=== PATIENT | female | born 2000 | race Caucasian/White ===

== ENCOUNTER 2020-01-14 21:33 | Emergency (ER) | payer BC, OTHER ==
[~2020-01-14] VITALS: Ht 160 cm; Wt 72.6 kg
[2020-01-14 21:52] LABS: BILIRUBIN,URINE NEGATIVE (NEGATIVE); CLARITY,URINE CLEAR; COLOR,URINE YELLOW; GLUCOSE, URINE (UA) NEGATIVE (NEGATIVE); KETONES,URINE NEGATIVE (NEGATIVE); LEUKOCYTE ESTERASE ,URINE NEGATIVE (NEGATIVE); NITRITE,URINE NEGATIVE (NEGATIVE); PH,URINE 5.5 (5-9); PROTEIN,URINE NEGATIVE (NEGATIVE)
[2020-01-14] MEDS ORDERED: LACTATED RINGERS 1,000 ML IV ONE (22:04)
[2020-01-14 22:13] LABS: BACTERIA,URINE MODERATE /HPF; BASOPHILS # (AUTO) 0.1 10^3/uL (0.0-0.1); BASOPHILS % (AUTO) 1 % (0-10); CALCIUM OXALATE CRYSTALS,UR FEW /LPF; EOSINOPHILS # (AUTO) 0.2 10^3/uL (0.0-0.3); EOSINOPHILS % (AUTO) 2 % (0-10); HEMATOCRIT 36 % (35-52); HEMOGLOBIN 12.4 g/dL (11.5-16.0); LYMPHOCYTES # (AUTO) 3.1 10^3/uL (1.0-4.0); LYMPHOCYTES % (AUTO) 30 % (12-44); MEAN CORPUSCULAR HEMOGLOBIN 30 pg (25-34); MEAN CORPUSCULAR HGB CONC 34 g/dL (32-36); MEAN CORPUSCULAR VOLUME 88 fL (80-99); MEAN PLATELET VOLUME 10.6 fL (9.0-12.2); MONOCYTES # (AUTO) 0.7 10^3/uL (0.0-1.0); MONOCYTES % (AUTO) 7 % (0-12); NEUTROPHILS # (AUTO) 6.2 10^3/uL (1.8-7.8); NEUTROPHILS % (AUTO) 60 % (42-75); PLATELET COUNT 307 10^3/uL (130-400); RBC,URINE 50-100 /HPF; WHITE BLOOD COUNT 10.3 10^3/uL (4.3-11.0)
[2020-01-14] MEDS ORDERED: ONDANSETRON 4 MG/2 ML (SDV) Z0FRAN IVP ONE (22:15)
[2020-01-14 22:19] LABS: ALBUMIN 4.3 GM/DL (3.2-4.5); CHLORIDE 107 MMOL/L (98-107); POTASSIUM 3.3 MMOL/L (3.6-5.0); SODIUM 139 MMOL/L (135-145)
[2020-01-14 22:20] LABS: CALCIUM 8.9 MG/DL (8.5-10.1)
[2020-01-14 22:22] LABS: GLUCOSE 133 MG/DL (70-105); TOTAL PROTEIN 7.1 GM/DL (6.4-8.2)
[2020-01-14 22:23] LABS: BILIRUBIN,TOTAL 0.3 MG/DL (0.1-1.0); CARBON DIOXIDE 22 MMOL/L (21-32)
[2020-01-14 22:25] LABS: ALKALINE PHOSPHATASE 54 U/L (40-136); CREATININE SERUM 0.84 MG/DL (0.60-1.30); GFR ESTIMATED > 60
[2020-01-14 22:26] LABS: BUN/CREATININE RATIO 15
[2020-01-14 22:28] LABS: ALANINE AMINOTRANSFERASE 12 U/L (0-55)
--- NOTE | 2020-01-14 22:48 | ED Abdominal Pain ---
General Chief Complaint: Abdominal/GI Problems Stated Complaint: ABD PAIN;VOMITING Nursing Triage Note: Pt ambulates to room #5 with c/o abd discomfort, nausea, et vomiting. Pt reports lower R quadrant abd discomfort that began approx 2hrs [employer]. Reports discomfort to be associated with nausea et vomiting (x3 episodes of emesis). A&OX4. Sepsis Screen: No Definite Risk Source of Information: Patient Exam Limitations: No Limitations History of Present Illness Date Seen by Provider: Jan 14, 2020 Time Seen by Provider: 21:35 Initial Comments This 19-year-old young lady presents to the emergency room with complaints of right lower abdominal pain that started less than 2 hours prior to presentation. She also had associated nausea and vomiting. She reports no constipation or diarrhea. She had 2 normal bowel movements today that did not affect the pain. She reports the car ride was not particularly painful but did induce nausea and more vomiting. She denies and has no major health problems. She denies any urinary symptoms or vaginal symptoms. Allergies and Home Medications Allergies Coded Allergies: No Known Drug Allergies (Unverified , 01/14/20) Home Medications Ondansetron 4 Mg Tab.rapdis, 4 MG SL Q4H PRN for NAUSEA/VOMITING Prescribed by: SAROJ KENNEDY on 01/14/20 8300 Patient Home Medication List Home Medication List Reviewed: Yes Review of Systems Review of Systems Constitutional: no symptoms reported EENTM: No Symptoms Reported Respiratory: No Symptoms Reported Cardiovascular: No Symptoms Reported Gastrointestinal: See HPI Genitourinary: No Symptoms Reported Musculoskeletal: no symptoms reported Skin: no symptoms reported Psychiatric/Neurological: No Symptoms Reported Endocrine: No Symptoms Reported Hematologic/Lymphatic: No Symptoms Reported Past Vbeimzw-Zyxuce-Sluhhe Hx Past Med/Social Hx: Reviewed Nursing Past Med/Soc Hx Patient Social History Alcohol Use: Rarely Uses Number of Drinks Today: 0 Recreational Drug Use: No Smoking Status: Never a Smoker 2nd Hand Smoke Exposure: No Recent Foreign Travel: No Contact w/Someone Who Travel: No Recent Infectious Disease Expo: No Recent Hopitalizations: No (Denies medical hx ) Seasonal Allergies Seasonal Allergies: No Past Medical History Surgeries: No Respiratory: No Cardiac: No Neurological: No : No Genitourinary: No Gastrointestinal: No Musculoskeletal: No Endocrine: No HEENT: No Cancer: No Psychosocial: No Integumentary: No Physical Exam Vital Signs Vital Signs - First Documented 01/14/20 21:40 Temp 36.9 Pulse 78 Resp 18 B/P (MAP) 135/107 (116) Pulse Ox 99 O2 Delivery Room Air Capillary Refill : Less Than 3 Seconds Height/Weight/BMI Height: '" Weight: lbs. oz. kg; 28.00 BMI Method: General Appearance: WD/WN, no apparent distress HEENT: PERRL/EOMI, normal ENT inspection, pharynx normal Neck: normal inspection Respiratory: lungs clear, normal breath sounds, no respiratory distress Cardiovascular: regular rate, rhythm, no edema, no murmur Gastrointestinal: normal bowel sounds, soft; No distended, No guarding, No rebound; tenderness (right lower quadrant), other (subtly positive Rovsing's, heel tap, iliopsoas, and obturator signs) Extremities: normal inspection, no pedal edema Neurologic/Psychiatric: wild life manager II-XII nml as tested, no motor/sensory deficits, alert, normal mood/affect, oriented x 3 Skin: normal color, warm/dry Progress/Results/Core Measures Results/Orders Lab Results Laboratory Tests Test 01/14/20 21:45 Range/Units White Blood Count 10.3 4.3-11.0 10^3/uL Red Blood Count 4.14 3.80-5.11 10^6/uL Hemoglobin 12.4 11.5-16.0 g/dL Hematocrit 36 35-52 % Mean Corpuscular Volume 88 80-99 fL Mean Corpuscular Hemoglobin 30 25-34 pg Mean Corpuscular Hemoglobin Concent 34 32-36 g/dL Red Cell Distribution Width 12.1 10.0-14.5 % Platelet Count 307 130-400 10^3/uL Mean Platelet Volume 10.6 9.0-12.2 fL Immature Granulocyte % (Auto) 0 % Neutrophils (%) (Auto) 60 42-75 % Lymphocytes (%) (Auto) 30 12-44 % Monocytes (%) (Auto) 7 0-12 % Eosinophils (%) (Auto) 2 0-10 % Basophils (%) (Auto) 1 0-10 % Neutrophils # (Auto) 6.2 1.8-7.8 10^3/uL Lymphocytes # (Auto) 3.1 1.0-4.0 10^3/uL Monocytes # (Auto) 0.7 0.0-1.0 10^3/uL Eosinophils # (Auto) 0.2 0.0-0.3 10^3/uL Basophils # (Auto) 0.1 0.0-0.1 10^3/uL Immature Granulocyte # (Auto) 0.0 0.0-0.1 10^3/uL Urine Color YELLOW Urine Clarity CLEAR Urine pH 5.5 5-9 Urine Specific Schaller >=1.030 1.016-1.022 Urine Protein NEGATIVE NEGATIVE Urine Glucose (UA) NEGATIVE NEGATIVE Urine Ketones NEGATIVE NEGATIVE Urine Nitrite NEGATIVE NEGATIVE Urine Bilirubin NEGATIVE NEGATIVE Urine Urobilinogen 0.2 < = 1.0 MG/DL Urine Leukocyte Esterase NEGATIVE NEGATIVE Urine RBC (Auto) 3+ H NEGATIVE Urine RBC 50-100 H /HPF Urine WBC 2-5 /HPF Urine Squamous Epithelial Cells 2-5 /HPF Urine Crystals PRESENT H /LPF Urine Calcium Oxalate Crystals FEW H /LPF Urine Bacteria MODERATE H /HPF Urine Casts NONE /LPF Urine Mucus SMALL H /LPF Urine Culture Indicated YES Sodium Level 139 135-145 MMOL/L Potassium Level 3.3 L 3.6-5.0 MMOL/L Chloride Level 107 98-107 MMOL/L Carbon Dioxide Level 22 21-32 MMOL/L Anion Gap 10 5-14 MMOL/L Blood Urea Nitrogen 13 7-18 MG/DL Creatinine 0.84 0.60-1.30 MG/DL Estimat Glomerular Filtration Rate > 60 BUN/Creatinine Ratio 15 Glucose Level 133 H 70-105 MG/DL Calcium Level 8.9 8.5-10.1 MG/DL Corrected Calcium 8.7 8.5-10.1 MG/DL Total Bilirubin 0.3 0.1-1.0 MG/DL Aspartate Amino Transf (AST/SGOT) 14 5-34 U/L Alanine Aminotransferase (ALT/SGPT) 12 0-55 U/L Alkaline Phosphatase 54 40-136 U/L C-Reactive Protein High Sensitivity 1.56 H 0.00-0.50 MG/DL Total Protein 7.1 6.4-8.2 GM/DL Albumin 4.3 3.2-4.5 GM/DL Serum Test, Qualitative NEGATIVE NEGATIVE My Orders Orders - SAROJ BARNES MD Ondansetron Injection (Zofran Injectio (01/14/20 22:15) Ed Iv/Invasive Line Start (01/14/20 22:04) Lactated Ringers (Lr 1000 Ml Iv Solution (01/14/20 22:04) Cbc With Automated Diff (01/14/20 22:04) Comprehensive Metabolic Panel (01/14/20 22:04) Hs C Reactive Protein (01/14/20 22:04) Hcg,Qualitative Serum (01/14/20 22:04) Ketorolac Injection (Toradol Injection) (01/14/20 23:00) Medications Given in ED Current Medications Medications Dose Ordered Sig/Isabelle Route Start Time Stop Time Status Last Admin Dose Admin Ketorolac Tromethamine 30 mg ONCE ONCE IVP 01/14/20 23:00 01/14/20 23:01 DC 01/14/20 22:54 30 MG Lactated Ringer's 1,000 ml @ 0 mls/hr Q0M ONCE IV 01/14/20 22:04 01/14/20 22:07 DC 01/14/20 22:18 0 MLS/HR Ondansetron HCl 8 mg ONCE ONCE IVP 01/14/20 22:15 01/14/20 22:16 DC 01/14/20 22:17 8 MG Vital Signs/I&O 01/14/20 01/14/20 21:40 23:38 Temp 36.9 36.9 Pulse 78 87 Resp 18 18 B/P (MAP) 135/107 (116) 135/97 (116) Pulse Ox 99 100 O2 Delivery Room Air 01/15/20 00:00 Intake Total 1000 ml Balance 1000 ml Blood Pressure Mean: 116 Progress Progress Note #1: Time: 22:50 Progress Note Patient's nausea was treated with Zofran. Labs are unremarkable. I discussed risks and benefits of CT imaging with the patient as well as potential causes of her pain. After discussion and answering questions patient would like to hold off on CT imaging at this time. She would like trying to treat her pain with Toradol and reassessing after that. Progress Note #2: Time: 23:26 Progress Note Patient reports that her pain has subsided significantly. She would therefore like to hold off on further workup including CT scan. She will exercise careful observation at home and a clear liquid diet. She was invited to call me before 06:00 with any questions or concerns. Departure Impression Primary Impression: Right lower quadrant pain Additional Impression: Nausea and vomiting Qualified Codes: R11.2 - Nausea with vomiting, unspecified Disposition: 01 HOME, SELF-CARE Condition: Improved Departure-Patient Inst. Decision time for Depature: 23:27 Patient Instructions: Clear Liquid Diet, Severe Abdominal Pain, Adult (DC) Add. Discharge Instructions: Adhere to a clear liquid diet for the next 24 hours. You may take Tylenol and/or ibuprofen for pain. Fill the Zofran (ondansetron) as prescribed in the morning if you are having any further trouble with nausea or vomiting. Return to care if you have worsening symptoms or develop new symptoms such as fever. Also follow-up in the clinic or the ER if you are having persistent symptoms that are not improving over the next 24-48 hours as expected. All discharge instructions reviewed with patient and/or family. Voiced understanding. Scripts Ondansetron (Ondansetron Odt) 4 Mg Tab.rapdis 4 MG SL Q4H PRN for NAUSEA/VOMITING, #10 TAB Prov: SAROJ BARNES MD 01/14/20 SAROJ BARNES MD Jan 14, 2020 22:48
[2020-01-14] MEDS ORDERED: KETOROLAC 30 MG/ML VIAL IVP ONE (23:00)
[2020-01-14] MEDS ORDERED: ONDA4TAB11 SL (23:30)
[2020-01-14 23:38] VITALS: BP 135/97
== END 2020-01-14 23:40 | disposition home or self-care (01) ==
LOC: EDUNIT# 21:33 → ER 21:35
DX: R10.31 Right lower quadrant pain (principal); R11.2 Nausea with vomiting, unspecified
CPT/HCPCS: 36415; 80053; 81000; 84703; 85025; 86141; 87088